=== PATIENT | female | born 1940 | race Caucasian/White ===

== ENCOUNTER 2017-05-05 08:48 | Observation (INO) ==
--- NOTE | 2017-05-04 16:27 | Discharge Summary ---
<Carla Silver - Last Filed: 05/04/17 16:25> Date of Encounter: 05/04/17 - Discharge Diagnosis (1) Osteoarthritis of right knee Priority: Primary Status: Chronic Qualifiers: Osteoarthritis type: unspecified Qualified Code(s): M17.11 - Unilateral primary osteoarthritis, right knee (2) HTN (hypertension) Priority: Secondary Status: Chronic Qualifiers: Hypertension type: unspecified Qualified Code(s): I10 - Essential (primary ) hypertension (3) HLD (hyperlipidemia) Priority: Secondary Status: Chronic Qualifiers: Hyperlipidemia type: unspecified Qualified Code(s): E78.5 - Hyperlipidemia , unspecified (4) History of melanoma Priority: Secondary Status: Chronic - Discharge Medications Home Medications: Calcium Carbonate/Vitamin D3 [Liquid Calcium 600-Vit D3 Sfgl] 1 each PO DAILY [History] Simvastatin [Zocor] 40 mg PO HS 04/01/15 [History] Valsartan/Hydrochlorothiazide [Diovan Hct 160-25 mg Tablet] 1 tab PO DAILY 04/01 [History] Vitamin D3/Folic Acid [Ortho D 3,775 Unit-1 mg Cap] 1 each PO DAILY 04/01/15 [ History] Aspirin Enteric Coated [Aspirin EC] 325 mg PO DAILY 21 Days #21 tablet. [Rx] OxyCODONE Immed Rel [Roxicodone 5 MG] 5 mg PO Q6HR PRN 7 Days #28 tablet [Rx] Magnesium Oxide [Magnesium] 400 mg PO DAILY 05/05/17 [History] Allergies/Adverse Reactions: 3 Allergy/AdvReac Type Severity Reaction Status Date / Time celecoxib [From Celebrex] AdvReac Gastrointestinal Verified 05/05/17 09:58 Upset sulfamethoxazole AdvReac Rash Verified 05/05/17 09:58 [From Bactrim] trimethoprim [From Bactrim] AdvReac Rash Verified 05/05/17 09:58 Primary care physician: Eduard Oneill CNP - Patient Status Disposition: Home Health Service Condition: Good - Discharge Instructions Follow Up With: Eduard Oneill CNP [Primary Care Provider] - - Hospital Course Hospital course: Ms. Silverio is a 76 year old female - Time Spent with Patient Total time spent providing and/or coordinating discharge services: <Donta Rich - Last Filed: 05/06/17 07:06> Date of Encounter: 05/06/17 Time of Encounter: 07:06 - Discharge Diagnosis (1) Obesity (BMI 30.0-34.9) Priority: Secondary Status: Chronic (2) Osteoarthritis of right knee Priority: Primary Status: Chronic Qualifiers: Osteoarthritis type: unspecified Qualified Code(s): M17.11 - Unilateral primary osteoarthritis, right knee (3) HTN (hypertension) Priority: Secondary Status: Chronic Qualifiers: Hypertension type: unspecified Qualified Code(s): I10 - Essential (primary ) hypertension (4) HLD (hyperlipidemia) Priority: Secondary Status: Chronic Qualifiers: Hyperlipidemia type: unspecified Qualified Code(s): E78.5 - Hyperlipidemia , unspecified (5) History of melanoma Priority: Secondary Status: Chronic (6) Status post total right knee replacement Priority: Primary Status: Acute Primary care physician: Eduard Oneill CNP - Patient Status Functional capacity at discharge: uses cane/walker Overall status at discharge: patient is progressing back to baseline - Hospital Course Hospital course: Ms. Silverio is a 76 year old female Status post total knee replacement The patient had an uneventful postoperative course. They received antibiotics and physical therapy and were discharged in stable condition. There will follow -up in the office in 2 weeks. - Time Spent with Patient Total time spent providing and/or coordinating discharge services:
--- NOTE | 2017-05-04 16:31 | Physician Discharge Referral ---
Home Health/Hosp Referral Info Transfer to: Home Health Attending Provider: Dr Donta Rich - Diagnosis (1) Osteoarthritis of right knee Priority: Primary Status: Chronic (2) HTN (hypertension) Priority: Secondary Status: Chronic (3) HLD (hyperlipidemia) Priority: Secondary Status: Chronic (4) History of melanoma Priority: Secondary Status: Chronic (5) Status post total right knee replacement Priority: Primary Status: Acute - Respiratory Orders Smoking Cessation: Smoking cessation has been advised. For more information, call the [place] Tobacco Quit Line at 6-272-VMVU-NOW. - Dressing/Wound Care Site: right knee Type of Dressing/Treatments w/Frequency: Opsite placed. Keep dressing intact until first follow up appointment. If > 50% saturated, notify office, remove dressing and place appropriate dressing back in place. Leave Zipline intact. Opsite dressing is water resistant, not water- proof. OK to shower, but do not get dressing wet. - Diet/Nutrition Diet/Nutrition Orders: Regular - Activity Activity Orders: Up ad adriel, Ambulate, Chair, Walker Activity: List: Total Knee replacement Precautions x 6 weeks Apply cold therapy wrap 3-6x/day for 20 minutes at a time. Encourage ambulation throughout the day and incentive spirometer 10x/hour. Elevate affected extremity above heart as tolerated. Brace: Wear knee immobilizer at night x 2 weeks. - Services Needed Following services are medically necessary services: Nursing, Home Health Aide, Physical Therapy, Occupational Therapy - Transfer Medications Prescriptions: OxyCODONE Immed Rel [Roxicodone 5 MG] 5 mg PO Q6HR PRN 7 Days #28 tablet PRN Reason: Pain Aspirin Enteric Coated [Aspirin EC] 325 mg PO DAILY 21 Days #21 tablet. Home Medications: Aspirin [Adult Low Dose Aspirin EC] 81 mg PO DAILY 04/01/15 [History] Butalb/Acetaminophen/Caffeine [Fioricet 50-300-40 mg Capsule] 1 each PO Q6HR PRN #10 capsule 04/01/15 [Rx] Calcium Carbonate/Vitamin D3 [Liquid Calcium 600-Vit D3 Sfgl] 1 each PO DAILY [History] Etodolac 500 mg PO DAILY PRN 04/01/15 [History] Simvastatin [Zocor] 40 mg PO HS 04/01/15 [History] Valsartan/Hydrochlorothiazide [Diovan Hct 160-25 mg Tablet] 1 each PO DAILY 04/04 [History] Vitamin D3/Folic Acid [Ortho D 3,775 Unit-1 mg Cap] 1 each PO DAILY 04/01/15 [ History] Aspirin Enteric Coated [Aspirin EC] 325 mg PO DAILY 21 Days #21 tablet. [Rx] OxyCODONE Immed Rel [Roxicodone 5 MG] 5 mg PO Q6HR PRN 7 Days #28 tablet [Rx] Allergies/Adverse Reactions: 3 Allergy/AdvReac Type Severity Reaction Status Date / Time sulfamethoxazole AdvReac Rash Verified 04/01/15 17:36 [From Bactrim] trimethoprim [From Bactrim] AdvReac Rash Verified 04/01/15 17:36 Certification: Further, I certify that my clinical findings support that this patient is homebound (i.e. absences from home require considerable and taxing effort and are for medical reasons or druze services or infrequently or short duration when for other reasons) because: Homebound Reason: Post-surgery restriction and or conditions limit ability to leave home Attestation: My signature below is to certify that this patient is under my care and that I, or nurse practitioner, or a physician psychiatric technician assistant working with me, has a face-to- face encounter with this patient.
[2017-05-05] MEDS ORDERED: CeFAZolin Syr 2,000MG/20 ML 2,000 MG/20 ML SYRINGE IVPB ONE (09:14)
--- NOTE | 2017-05-05 09:16 | History & Physical Report ---
Date of Encounter: 05/05/17 Time of Encounter: 09:16 24 Hour HP Update - Instructions Instructions: If the History and Physical is less than 30 days old and was completed prior to A.M. admission and or procedure and has NOT been updated on calendar day of procedure please complete this update prior to performing procedure. - Update Patient reports changes in Medical Condition: No Changes in examination, assessment, or condition: No Changes in Medication: No Preop tests/diagnostics Reviewed: Yes Surgery Remains Indicated: Yes Consent for Planned Operative Procedure(s) Verified: Yes - Pre-Operative Checklist Preoperative Checklist Indicated: No Prophylactic Antibiotic Ordered: Yes Is VTE Prophylaxis Indicated?: Yes
[2017-05-05] MEDS: Ringers Solution, Lactated 1,000 ML IVC SCH ×2 (09:30→14:27)
--- NOTE | 2017-05-05 10:02 | Anesthesia Evaluation PreOp ---
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: Other (hearing loss) Other Medical History: Denies Any Significant HX Anesthesia History: No Prior Anesthetic Complications, Past Anesthesia (FREEMAN, hernia, scotty, excise melanoma, tubal, lap wen), Problems (patient reports she has had difficult airway in past) Alcohol Use: none Drug use: none Medications and Allergies Aspirin [Adult Low Dose Aspirin EC] 81 mg PO DAILY 04/01/15 [History] Butalb/Acetaminophen/Caffeine [Fioricet 50-300-40 mg Capsule] 1 each PO Q6HR PRN #10 capsule 04/01/15 [Rx] Calcium Carbonate/Vitamin D3 [Liquid Calcium 600-Vit D3 Sfgl] 1 each PO DAILY [History] Etodolac 500 mg PO DAILY PRN 04/01/15 [History] Simvastatin [Zocor] 40 mg PO HS 04/01/15 [History] Valsartan/Hydrochlorothiazide [Diovan Hct 160-25 mg Tablet] 1 each PO DAILY 04/04 [History] Vitamin D3/Folic Acid [Ortho D 3,775 Unit-1 mg Cap] 1 each PO DAILY 04/01/15 [ History] Aspirin Enteric Coated [Aspirin EC] 325 mg PO DAILY 21 Days #21 tablet. [Rx] OxyCODONE Immed Rel [Roxicodone 5 MG] 5 mg PO Q6HR PRN 7 Days #28 tablet [Rx] 3 Allergy/AdvReac Type Severity Reaction Status Date / Time celecoxib [From Celebrex] AdvReac Gastrointestinal Verified 05/05/17 09:58 Upset sulfamethoxazole AdvReac Rash Verified 05/05/17 09:58 [From Bactrim] trimethoprim [From Bactrim] AdvReac Rash Verified 05/05/17 09:58 - Meds/Allergy Pre-op Review Medications Reviewed: Yes Allergies Reviewed: Yes Beta Blockers on Current Med List: No Anesthesia Results - Labs Laboratory Tests 04/23/17 04/23/17 09:44 09:44 Hgb 13.1 Hct 41.1 Plt Count 285 Sodium 137 Potassium 4.0 BUN 24 H Creatinine 0.85 Anesthesia Exam Selected Entries 05/05/17 09:28 Temperature 98.4 F Pulse Rate 82 Respiratory Rate 18 Blood Pressure 119/61 O2 Sat by Pulse Oximetry 98 Weight: 81kg NPO (# of Hours): 8 - HEENT Pupil (Motor): EOMI Mallampati: III Teeth: Normal, Prosthesis (permanent bridge) Oral Opening: Less than or equal to 3 - SHIPYARD PAINTER LOC: Oriented SHIPYARD PAINTER Motor: Normal RUE, Normal LUE, Normal RLE, Normal LLE, Normal Face SHIPYARD PAINTER Sensory: Normal: RUE, LUE, RLE, LLE, Face - Cardiac Rhythm: Regular Murmur: None - Pulmonary Breath Sounds: bilateral Clear Respiratory Effort: Symmetrical Anesthesia Assess/Plan ASA Score: 2 Modified Maricarmen Scale for Level of Consciousness: Cooperative, oriented, and tranquil Anesthetic Plan: Regional (SAB with block), MAC Monitoring Plan: Standard Monitors Recovery Plan: PACU
[2017-05-05] MEDS ORDERED: Pregabalin 75 MG CAPSULE PO ONE (10:30)
[2017-05-05] MEDS ORDERED: *HR* Propofol 200 MG/20 ML VIAL IVP ONE (10:36)
[2017-05-05] MEDS ORDERED: Lidocaine -MPF 2% 2 ML VIAL ONE (10:36)
[2017-05-05] MEDS ORDERED: *HR* Midazolam HCl 2 MG/2 ML VIAL ONE (10:36)
[2017-05-05] MEDS ORDERED: *HR* FentaNYL (PF) 100 MCG/2 ML VIAL ONE (10:36)
[2017-05-05] MEDS ORDERED: ROPIVACAINE HCL/PF 0.5% 30 ML VIAL ONE (10:59)
[2017-05-05] MEDS ORDERED: Acetaminophen IV 1,000 MG/100 ML INFUS..BTL ONE (10:59)
[2017-05-05] MEDS ORDERED: Ethanol\\Acetic Acid\\Na Ace\\Ben 1,000 ML IRRIG.SOLN IR ONE (11:03)
[2017-05-05] MEDS ORDERED: Povidone-Iodine 22.5 ML, Sodium Chloride IRRigation 500 ML IR ONE (11:10)
[2017-05-05] MEDS ORDERED: *HR* Morphine Sulfate/PF 10 MG/10 ML AMPUL ONE (11:22)
[2017-05-05] MEDS ORDERED: Propofol 500 MG/50 ML INFUS..BTL ONE (11:27)
[2017-05-05] MEDS ORDERED: *HR* Labetalol 20 MG/4 ML SYRINGE IVP PRN (12:09)
[2017-05-05] MEDS ORDERED: Ondansetron 4 MG/2 ML VIAL IVP PRN ×2 (12:09→15:25)
--- NOTE | 2017-05-05 12:09 | Anesthesia Procedures ---
Date of Encounter: 05/05/17 Time of Encounter: 11:47 Procedures: Anesthesia - Nerve Block Procedure Date: 05/05/17 Time: 11:47 Allergies/Adv Reactions: celebrex, bactrim Pre-op Diagnosis: right knee OA Surgical Procedure: right TKA robotic Checklist: Correct Patient Identifier, Correct procedure, History checked Correct side: Right Blood Thinner: No Monitor Applied: EKG, BP, Pulse Oximetry Supplemental Oxygen via Nasal Cannula (L/min): 2 Sedation: Versed (mg): 1 Sedation: Fentanyl (mcg): 100 Indication: Post Op Analgesia Pre-op Neuro Deficits: No Block Type: Other (adductor canal, ipack, WILL) Catheter placed: No Sterile Technique: Yes Ultrasound used: Yes Anatomy identified: Yes Visual spread of Local: Yes Neuro Stimulation: No Blood on Needle Aspiration: No Smooth Injection of Local: Yes Pain with Injection of Local: No Prep: Chlorhexadine Needle: 22 x 50 mm Stimuplex, 21 x 100 mm Stimuplex Local: Ropivacaine (AC: 15mL / WILL 15mL 0.5% + 10mg decadron), Other (0.25% bupivacaine 20mL + 10mg decadron) Volume (cc): 50 Number of Attempts: 1 Complications: None/effective block Vitals: Vital Signs/O2 Sat/Glucose, Most Recent Temp Pulse Resp BP Pulse Ox 98.4 F 79 18 151/69 99 05/05/17 09:28 05/05/17 11:47 05/05/17 11:47 05/05/17 11:47 05/05/17 11:47
[2017-05-05] MEDS ORDERED: Ondansetron 4 MG/2 ML VIAL ONE (13:05)
[2017-05-05] MEDS ORDERED: Dexamethasone 4 MG/ML VIAL ONE ×2 (13:05)
[2017-05-05] MEDS ORDERED: *HR* Phenylephrine 10 MG/ML VIAL ONE (13:07)
[2017-05-05] MEDS ORDERED: *HR* Magnesium Sulfate 1 GM/2 ML VIAL ONE (13:10)
--- NOTE | 2017-05-05 13:26 | Anesthesia Procedures ---
Date of Encounter: 05/05/17 Time of Encounter: 13:00 Procedures: Anesthesia - Epidural/Spinal Patient ID/Chart reviewed: Yes Patient examined: Yes Supplemental Oxygen: Mask Supplemental Oxygen Rate (L/min): 10 Site Prep: Aseptic Technique, Sterile prep and drape, Povidone-Iodine 1% Patient position: upright Local Anesthetic: Lidocaine 1% Amount of Local Anesthetic used: 2 Interspace Used: L3-L4 Blood: No CSF: Yes Paresthesia: No Spinal Needle Gauge: 22 Spinal Dose: 1.8mL 0.75% marcaine w/ epi wash + 200mcg [employer] Procedure: right TKA robotic
--- NOTE | 2017-05-05 13:54 | Orthopedic Operative Note ---
Date of procedure: 05/05/17 Pre-op diagnosis: Right knee arthritis Post-op diagnosis: same Procedure: Procedure: Right robotic-assisted Total knee replacement Estimated blood loss: 200 cc Hardware: Metal and polyethylene replacement. [place] Femur:1 Tibia:2 TS insert: 13 Patella: 33 Exam Under anesthesia: 5 degree flexion contracture and 1 degree valgus as calculated by the robot full flexion and no instability Procedural Notes: Grade 3 arthritic changes medial compartment and patellofemoral joint. Operative procedure: The patient was brought to the operating room and placed on the operating room table. After general anesthesia was administered the operative knee was examined. Findings were noted in the exam under anesthesia. The operative extremity was prepped and draped in sterile surgical fashion. The patient received IV antibiotics prior to skin incision. A standard midline incision was made centered over the patella. The incision was made through the skin and subcutaneous tissue. A medial parapatellar tendon approach was performed. Care was taken to preserve tissue along the medial aspect of the patella. And to protect the patella tendon. The deep MCL was released off the medial tibia. The infra patella fat pad was excised. The patella was everted and cut was made at the level of the insertion of the quadriceps and patella tendon. The patella was sized to a 33 the guide was seated and the lug holes are drilled. Knee was brought into flexion. Patient noted to have Steinmann pins were placed in the tibia and the femur for the tibial and femoral arrays respectively. Checkpoints were also placed in the tibia and the femur for calculation purposes. The knee including the femur and the tibial registered. Osteophytes, ACL and PCL were excised at this point. Extension and flexion were assessed with a valgus stress components were adjusted on the computer to balance the knee. Femoral cuts were made first with robotic assistance, these included the anterior cut posterior cuts chamfer cuts. Tibial cut was then performed with robotic assistance as well. Bone fragments were removed, as well as the medial and lateral meniscus. The size 1 femoral guide was seated box cut was made lug holes are drilled. The size 2 tibial tray was seated and prepared with the fin cutter. Trial reduction with the 13 TS Kellee revealed extension of 0 degree and full flexion 1 degree varus. No varus valgus instability. Trial reduction revealed excellent patella tracking. All trial components were removed all bony surfaces were irrigated. The Tibia was seated followed by the femur, The Kellee size 13 was seated and secured patella. Patient had similar findings for motion and stability. The knee was closed by the PA. The knee was then irrigated out with 2 L of pulse irrigation. The extensor mechanism was closed with #2 FiberWire suture and #2 PDS suture. The subcutaneous tissue was then irrigated and closed deep with #1 PDS suture superficially with 0 PDS suture and skin was closed with zip tie The patient was then placed in a sterile dressing and a postoperative brace and transferred to recovery room in stable condition. Anesthesia: epidural Surgeon: Donta Rich Was there an laboratory chemical assistant present: No Estimated blood loss (cc): 200 Condition: stable Disposition: PACU
--- NOTE | 2017-05-05 14:59 | Anesthesia Evaluation Post Op ---
Date of Encounter: 05/05/17 Time of Encounter: 14:58 - Vital Signs Vital Signs: Vital Signs/O2 Sat, Most Current Temp Pulse Resp BP Pulse Ox 99.6 F 80 18 110/53 97 05/05/17 14:34 05/05/17 14:54 05/05/17 14:54 05/05/17 14:54 05/05/17 14:54 - Lungs Lungs: Clear Ascult./Percussion - Airway Airway: Non-obstructed - Cardiovascular Regular Rate - Mental Status Mental Status: Alert & Oriented, Answers Appropriately - Pain Pain Scale: 0 Pain Scale used: Numeric (1 - 10) - Hydration Hydration: NPO, Has not voided - Discharge PostOp Status: Transfer Patient to floor
[2017-05-05 15:12] LABS: Hematocrit 37.8 % (35.3-44.9); Hemoglobin 12.2 g/dL (11.5-15.4)
[2017-05-05] MEDS ORDERED: *HR* OxyCODONE Immed Rel 5 MG TABLET PO PRN (15:25)
[2017-05-05] MEDS ORDERED: *HR* OxyCODONE Immed Rel 15 MG TABLET PO PRN (15:25)
[2017-05-05] MEDS ORDERED: Ringers Solution, Lactated 1,000 ML IVC SCH (15:25)
[2017-05-05] MEDS ORDERED: Naloxone 0.4 MG/ML INJ IVP PRN (15:25)
[2017-05-05] MEDS: CeFAZolin Premix DUPLEX 2,000 MG/50 ML BAG IVPB SCH (17:35)
[2017-05-05] MEDS: *HR* Enoxaparin 30 MG/0.3 ML SYRINGE SQ SCH (17:36)
[2017-05-05] MEDS ORDERED: *HR* Enoxaparin 30 MG/0.3 ML SYRINGE SQ SCH (18:00)
[2017-05-05] MEDS ORDERED: Temazepam 15 MG CAPSULE PO PRN (21:00)
[2017-05-05] MEDS ORDERED: MOM Conc 10 ML UD.LIQ PO PRN (21:00)
[2017-05-05] MEDS ORDERED: Sennosides 8.6 MG TABLET PO PRN (21:00)
[2017-05-06] MEDS: CeFAZolin Premix DUPLEX 2,000 MG/50 ML BAG IVPB SCH (00:13)
[2017-05-06] MEDS: *HR* Enoxaparin 30 MG/0.3 ML SYRINGE SQ SCH ×2 (05:32→17:23)
[2017-05-06 06:30] LABS: Hematocrit 34.6 % (35.3-44.9); Hemoglobin 11.1 g/dL (11.5-15.4)
[2017-05-06 06:32] LABS: BUN/Creatinine Ratio 31 (6-26); Blood Urea Nitrogen 19 mg/dL (8-23); Calcium 8.3 mg/dL (8.6-10.3); Carbon Dioxide 26 mEq/L (23-29); Chloride 104 mEq/L (98-107); Glucose 139 mg/dL (70-105); Osmolality,Calculated 287 (280-300); Potassium 4.1 mEq/L (3.5-5.1); Sodium 136 mEq/L (136-145); eGFR For African Americans > 60 (> 60); eGFR For Non-African Americans > 60 (> 60)
--- NOTE | 2017-05-06 07:07 | Orthopedics Progress Note ---
Date of Encounter: 05/06/17 Time of Encounter: 07:07 - Assessment and Plan (1) Obesity (BMI 30.0-34.9) Current Visit: Yes Status: Chronic (2) Osteoarthritis of right knee Current Visit: No Status: Chronic Qualifiers: Osteoarthritis type: unspecified Qualified Code(s): M17.11 - Unilateral primary osteoarthritis, right knee (3) HTN (hypertension) Current Visit: No Status: Chronic Qualifiers: Hypertension type: unspecified Qualified Code(s): I10 - Essential (primary ) hypertension (4) HLD (hyperlipidemia) Current Visit: No Status: Chronic Qualifiers: Hyperlipidemia type: unspecified Qualified Code(s): E78.5 - Hyperlipidemia , unspecified (5) History of melanoma Current Visit: No Status: Chronic (6) Status post total right knee replacement Current Visit: No Status: Acute Subjective Interval history: Patient was seen this morning doing well without complaints. Afebrile vital signs stable. Operative extremity: Neurovascularly intact Dressing clean dry and intact Calves nontender Assessment and plan: Continue with postoperative care Hematocrit 34 discharged today Objective Vital signs: Vital Signs Temp Pulse Resp BP Pulse Ox 05/06/17 03:57 98.1 F 76 20 106/61 97 05/06/17 00:48 98.2 F 81 20 114/64 98 05/05/17 18:35 97.6 F 74 106/58 99 05/05/17 17:44 97.7 F 74 16 102/60 99 05/05/17 16:32 97.6 F 71 14 95/55 98 05/05/17 15:59 97.5 F L 69 16 98/53 97 05/05/17 15:29 97.6 F 72 14 99/57 98 05/05/17 15:14 97.5 F L 75 18 103/51 97 05/05/17 15:04 97.5 F L 75 18 102/55 96 05/05/17 14:54 80 18 110/53 97 05/05/17 14:44 77 18 102/52 93 05/05/17 14:34 99.6 F 81 18 100/46 94 05/05/17 12:15 73 18 133/68 99 05/05/17 12:00 76 18 127/77 99 05/05/17 11:47 79 18 151/69 99 01/15/18 09:28 98.4 F 82 18 119/61 98 Intake and Output 05/05/17 05/05/17 05/06/17 15:59 23:59 07:59 Intake Total 1000 / 1000 50 / 50 0 / 0 Output Total 200 / 200 0 / 0 Balance 800 / 800 50 / 50 0 / 0 Intake: IV Fluids 1000 / 1000 50 / 50 Lactated Ringers 1,000 ML @ 25 1000 / 1000 mls/hr IVC .Q24H [facility] Rx#: [id number] Ancef Premix DUPLEX 2,000 mg In 50 / 50 50 ml @ 100 mls/hr IVPB Q8HR [facility] Rx#:[id number] Oral 0 / 0 Output: Urine 0 / 0 Estimated Blood Loss 200 / 200 Other: # Voids 1 Weight 81.193 kg 87.24 kg Patient Weight 05/06/17 23:59 Weight 87.24 kg - Labs CBC & BMP: 05/06/17 05:51 05/06/17 05:51 Labs: Abnormal lab results Hgb 11.1 g/dL (11.5-15.4) L 05/06/17 05:51 Hct 34.6 % (35.3-44.9) L 05/06/17 05:51 BUN/Creatinine Ratio 31 (6-26) H 05/06/17 05:51 Glucose 139 mg/dL (70-105) H 05/06/17 05:51 Calcium 8.3 mg/dL (8.6-10.3) L 05/06/17 05:51 - VTE Documentation of Mechanical Device: Venous foot pump, device Consult Discharge Plan - Plan Referrals: Eduard Oneill [facility] [Primary Care Provider] -
[2017-05-06] MEDS: Valsartan 160 MG TABLET PO SCH (07:57)
[2017-05-06] MEDS: Folic Acid 1 MG TABLET PO SCH (08:04)
[2017-05-06] MEDS: Cholecalciferol (D-3) 1,000 UNIT TABLET PO SCH (08:04)
[2017-05-06] MEDS: Magnesium Oxide 400 MG TABLET PO SCH (08:04)
[2017-05-06] MEDS ORDERED: hydroCHLOROthiazide 25 MG TABLET PO SCH (09:00)
[2017-05-06] MEDS: *HR* OxyCODONE Immed Rel 5 MG TABLET PO PRN ×2 (10:06→15:56)
[2017-05-06] MEDS ORDERED: *HR* HYDROcodone/Acet 5/325 mg TABLET PO PRN (17:01)
--- NOTE | 2017-05-06 17:06 | Event Note ---
Date of Encounter: 05/06/17 Time of Encounter: 12:00 PCR- POD#1 R TKR doris Rich 05/05/17 PCR - Patient seen at bedside. Pain control: Adequate Participating in PT. All questions and concerns addressed. Educated on use of incentive spirometer, ambulation, and hydration. Patient educated on post-operative restrictions and care. Addressed: patient having vasovagal episodes with sitting to standing. Appears to be orthostatic in nature. Encouraged PO hydration, increased nutritional intake, and rest. Patient admits to h/o these episodes in the past appx 4 years ago following abdominal surgery with Dr. Betancur. D/C plan: D/C tomorrow if vagal epsiodes resolve.
[2017-05-06] MEDS: *HR* HYDROcodone/Acet 10/325 mg TABLET PO PRN (20:47)
[2017-05-07] MEDS: *HR* HYDROcodone/Acet 10/325 mg TABLET PO PRN ×3 (02:04→14:22)
[2017-05-07 05:38] LABS: Hematocrit 27.6 % (35.3-44.9)
[2017-05-07 05:46] LABS: BUN/Creatinine Ratio 38 (6-26); Blood Urea Nitrogen 23 mg/dL (8-23); Calcium 7.8 mg/dL (8.6-10.3); Carbon Dioxide 26 mEq/L (23-29); Chloride 103 mEq/L (98-107); Glucose 143 mg/dL (70-105); Osmolality,Calculated 282 (280-300); Potassium 4.1 mEq/L (3.5-5.1); Sodium 133 mEq/L (136-145); eGFR For African Americans > 60 (> 60); eGFR For Non-African Americans > 60 (> 60)
[2017-05-07 05:49] LABS: Hemoglobin 9.1 g/dL (11.5-15.4)
[2017-05-07] MEDS: *HR* Enoxaparin 30 MG/0.3 ML SYRINGE SQ SCH (06:00)
[2017-05-07] MEDS ORDERED: Furosemide 20 MG/2 ML VIAL IVP ONE (06:37)
[2017-05-07] MEDS: Cholecalciferol (D-3) 1,000 UNIT TABLET PO SCH (08:32)
[2017-05-07] MEDS: Valsartan 160 MG TABLET PO SCH (08:32)
[2017-05-07] MEDS: Magnesium Oxide 400 MG TABLET PO SCH (08:32)
[2017-05-07] MEDS: Folic Acid 1 MG TABLET PO SCH (08:33)
--- NOTE | 2017-05-07 08:42 | Orthopedics Progress Note ---
Date of Encounter: 05/07/17 Time of Encounter: 08:41 - Assessment and Plan (1) Obesity (BMI 30.0-34.9) Current Visit: Yes Status: Chronic (2) Osteoarthritis of right knee Current Visit: No Status: Chronic Qualifiers: Osteoarthritis type: unspecified Qualified Code(s): M17.11 - Unilateral primary osteoarthritis, right knee (3) HTN (hypertension) Current Visit: No Status: Chronic Qualifiers: Hypertension type: unspecified Qualified Code(s): I10 - Essential (primary ) hypertension (4) HLD (hyperlipidemia) Current Visit: No Status: Chronic Qualifiers: Hyperlipidemia type: unspecified Qualified Code(s): E78.5 - Hyperlipidemia , unspecified (5) History of melanoma Current Visit: No Status: Chronic (6) Status post total right knee replacement Current Visit: No Status: Acute Subjective Interval history: Patient was seen this morning doing well without complaints. Afebrile vital signs stable. Operative extremity: Neurovascularly intact Dressing clean dry and intact Calves nontender Assessment and plan: Continue with postoperative care Hematocrit 27 transfuse 1 unit PRBC discharged today Objective Vital signs: Vital Signs Temp Pulse Resp BP Pulse Ox 05/07/17 07:37 98.6 F 97 16 120/57 97 05/07/17 05:29 98.2 F 74 15 119/76 97 05/07/17 00:07 98.9 F 89 16 120/57 97 05/06/17 20:54 89 116/55 05/06/17 16:43 99.6 F 101 16 91/45 94 05/06/17 15:58 91 118/65 05/06/17 15:25 98.9 F 89 16 120/57 97 05/06/17 15:05 98.4 F 86 14 109/54 96 05/06/17 14:00 99.2 F 92 16 118/57 92 05/06/17 12:56 81 105/61 05/06/17 12:48 66/40 05/06/17 10:47 98.3 F 87 15 109/57 97 05/06/17 10:03 83 121/66 Intake and Output 05/06/17 05/07/17 05/07/17 23:59 07:59 15:59 Intake Total 120 / 120 Output Total 200 / 200 Balance 120 / 120 -200 / -200 Intake: Oral 120 / 120 Output: Urine 200 / 200 Other: Meal Dinner Percent of Meal Consumed 5% # Voids 1 - Labs CBC & BMP: 05/07/17 05:23 05/07/17 05:23 Labs: Abnormal lab results Hgb 9.1 g/dL (11.5-15.4) L D 05/07/17 05:23 Hct 27.6 % (35.3-44.9) L 05/07/17 05:23 Sodium 133 mEq/L (136-145) L 05/07/17 05:23 BUN/Creatinine Ratio 38 (6-26) H 05/07/17 05:23 Glucose 143 mg/dL (70-105) H 05/07/17 05:23 Calcium 7.8 mg/dL (8.6-10.3) L 05/07/17 05:23 - VTE Documentation of Mechanical Device: Venous foot pump, device Consult Discharge Plan - Plan Additional Instructions: Discharge Instructions: Total Knee Replacement Please call [facility] ([phone]), your Primary Care Physician, or report to the Emergency Room if you have any of the following symptoms: Nausea, vomiting, fever greater that 101.5, swelling, chest pain, shortness of breath, increased pain/redness/drainage/odor for your incision site, numbness/ tingling, or any other concerning symptoms. ACTIVITY:Weight-bearing as tolerated. You may progress off support (crutches or walker) as tolerated. MEDICATIONS: Upon discharge resume your home medications. Take all the medications as prescribed. Take a stool softener if taking narcotic pain medications. Stool softeners are only effective if you drink enough fluids. Drink 6-8 glass of water or fluids a day, unless this is not allowed for another health problem. Despite using stool softeners, if you haven't had a bowel movement in 3 days, please switch to a gentle laxative. Gentle laxatives are sold over the counter. You should have a bowel movement within 24 hours, if not call the office. You will be discharged from the hospital with a prescription for pain medication. You are encouraged to decrease the use of narcotic pain medication as tolerated. Should you require a refill, please call the office. [facility] prescribes narcotic pain medication for only 4-6 weeks after surgery. If you require pain medication beyond this time period, you may be referred to your Primary Care Physician or to the Pain Clinic for further evaluation. Plan ahead for refills on pain medication as many narcotics either need to be picked up at the office or mailed. It is best to call 48-72 hours in advance of needing a prescription refill so you don't run out of medication. To help control the post-operative pain, you may take NSAIDs (Aleve,Advil, Motrin, Ibuprofen, Naprosyn) or Tylenol as prescribed on the bottle in addition to the pain medication. ANTICOAGULATION (blood thinners): Continue your Aspirin, Lovenox or Coumadin as prescribed to help prevent a blood clot in the leg or in the lungs. As long as your incision remains dry and you tolerate the NSAIDs (Aleve, Advil, Motrin, ibuprofen, naprosyn), it is OK to use the NSAIDS while you are taking your anticoagulation medication. Should your incision start to drain, stop the NSAID and contact our office. Common symptoms of blood clot in the legs include: localized pain, swelling, calf tenderness, redness or discoloration of the skin. Blood clot in the lung symptoms include: shortness of breath, rapid pulse, sweating, and chest pain that worsens with deep breathing, coughing up blood, lightheadedness, feelings of anxiety. If you experience any of these symptoms notify your physician immediately, go to the emergency room, or if having trouble breathing, call 911. WOUND CARE: Leave the dressing on for 7 to 10days. You may change the dressing if it becomes saturated greater than 50%. Do not get the dressing wet at anytime. Wash your hands with antibacterial soap, rinse and dry prior to any wound care. If you have jaclyn the visiting nurse or rehab facility can remove the stapes 10-14 days after surgery and place steri-strips across the wound. Leave the steri-strips in place until they fall off on their won. You may let water from the shower run on top of the steri-strips. If you do not have a visiting nurse or rehab facility, you will need to return to the office at 10-14 days for the jaclyn to be removed. If you have itching or redness around the dressing call the office. FOLLOW-UP: Please follow up with your surgeon in the orthopedic clinic in 4 weeks from the day of surgery. If you have jaclyn that need to be removed, you will need to come back to the office in 10-14 days from the day of surgery. Referrals: Carla Silver PAC [Physician Sales Consultant] - 05/15/17 9:45 am Donta Rich MD [Partnered Physician] - 06/04/17 4:20 pm Eduard Oneill CNP [Primary Care Provider] - 07/02/17 8:30 am
[2017-05-07] MEDS ORDERED: 0.9 % Sodium Chloride 250 ML ONE (10:45)
[2017-05-07 15:47] VITALS: BP 131/63
--- NOTE | 2017-05-07 16:20 | Event Note ---
Date of Encounter: 05/07/17 Time of Encounter: 12:15 PCR- POD#2 R TKR doris Rich 05/05/17 PCR - Patient seen at bedside. Pain control: Adequate, switching rx to norco upon discharge at pt request as percocet caused vasovagal episodes Labs: H/H - 9.05/17.6 - receiving 1unit RBC today Participating in PT. All questions and concerns addressed. Educated on use of incentive spirometer, ambulation, and hydration. Patient educated on post-operative restrictions and care. Addressed: (05/06/17) patient having vasovagal episodes with sitting to standing. Appears to be orthostatic in nature. Encouraged PO hydration, increased nutritional intake, and rest. Patient admits to h/o these episodes in the past appx 4 years ago following abdominal surgery with Dr. Betancur. 05/07/17 - No further vasovagal episodes today, states she is feeling much better. D/C plan: D/C today after transfusion
--- NOTE | 2017-05-08 07:53 | Electrocardiograph Report ---
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
== END 2017-05-07 16:28 | disposition home health service (06) ==
LOC: SAMDAY 08:48 → 3NENU 15:26 → INTOOBSV 15:26
PROVIDERS: ADMIT Orthopaedic Surgery; ATTEND Orthopaedic Surgery

== ENCOUNTER 2020-11-08 12:08 | Observation (INO) ==
[2020-11-08] MEDS ORDERED: Naloxone 0.4 MG/ML INJ IVP PRN (14:26)
[2020-11-08] MEDS ORDERED: Melatonin 3 MG TABLET PO PRN (14:26)
[2020-11-08] MEDS ORDERED: Ondansetron ODT 4 MG TAB.RAPDIS SL PRN (14:26)
[2020-11-08] MEDS ORDERED: Mag Hydrox/Al Hydrox/Simeth 30 ML UDC PO PRN (14:26)
[2020-11-08] MEDS ORDERED: MOM Conc 10 ML UD.LIQ PO PRN (14:26)
[2020-11-08] MEDS ORDERED: Isovue-370 500 ML BOTTLE IVP ONE (14:28)
[2020-11-08] MEDS: Fluticasone Propionate Nasal 50 MCG/SPRAY BOTTLE NS SCH (17:15)
[2020-11-08] MEDS ORDERED: *HR* LORazepam 2 MG/ML VIAL IVP ONE (19:26)
[2020-11-09 04:44] LABS: Hematocrit 39.4 % (35.3-44.9); Mean Corpuscular Hemoglobin 28.2 pg (28.0-33.3); Mean Platelet Volume 10.1 fL (9.4-12.4); Platelet Count 279 K/mcL (140-400); Red Blood Count 4.61 M/mcL (3.82-4.97); Red Cell Distribution Width 13.6 % (11.5-14.5)
[2020-11-09 04:48] LABS: Mean Corpuscular Volume 85.5 fL (83.0-100.0)
[2020-11-09 04:56] LABS: Alanine Aminotransferase 30 Units/L (7-52); Albumin 3.5 g/dL (3.5-5.7); Albumin/Globulin Ratio 1.7 (1.1-2.2); Alkaline Phosphatase 57 Units/L (34-104); Aspartate Amino Transferase 22 Units/L (13-39); BUN/Creatinine Ratio 29 (6-26); Bilirubin,Total 0.8 mg/dL (0.3-1.0); Blood Urea Nitrogen 18 mg/dL (8-23); Calcium 8.1 mg/dL (8.6-10.3); Carbon Dioxide 25 mEq/L (23-29); Chloride 105 mEq/L (98-107); Chol/HDL Ratio 2.3 (0-4.9); Cholesterol 149 mg/dL (< 200); Globulin 2.1 g/dL (2.4-3.5); Glucose 98 mg/dL (70-105); HDL Cholesterol 66 mg/dL (40-59); LDL Cholesterol,Calculated 63 mg/dL (< 100); Osmolality,Calculated 286 (280-300); Potassium 3.5 mEq/L (3.5-5.1); Sodium 137 mEq/L (136-145); Total Protein 5.6 g/dL (6.4-8.9); Triglycerides 102 mg/dL (< 150); eGFR For African Americans > 60 (> 60); eGFR For Non-African Americans > 60 (> 60)
[2020-11-09] MEDS ORDERED: *HR* Enoxaparin 40 MG/0.4 ML SYRINGE SQ SCH (06:00)
[2020-11-09] MEDS: Fluticasone Propionate Nasal 50 MCG/SPRAY BOTTLE NS SCH (07:52)
[2020-11-09] MEDS: Aspirin Enteric Coated 81 MG Tablet PO SCH (07:56)
[2020-11-09] MEDS ORDERED: Aspirin 81 MG TAB.CHEW PO SCH (09:00)
[2020-11-09] MEDS ORDERED: Perflutren Lipid Microsphere 1.3 ML in 0.9 % Sodium Chloride 8.7 ML IVP PRN (09:16)
[2020-11-09] MEDS ORDERED: *HR* LORazepam 2 MG/ML VIAL IVP ONE (09:25)
[2020-11-09] MEDS ORDERED: Heparin 25,000UNIT/250ML 1/2NS 25,000 UNIT/250 ML IV.SOLN IVC SCH (09:30)
[2020-11-09 09:58] LABS: Hematocrit 40.7 % (35.3-44.9); Hemoglobin 13.3 g/dL (11.5-15.4); Mean Corpuscular HGB Conc 32.7 g/dL (31.6-35.5); Mean Corpuscular Hemoglobin 28.1 pg (28.0-33.3); Mean Corpuscular Volume 85.9 fL (83.0-100.0); Mean Platelet Volume 10.1 fL (9.4-12.4); Platelet Count 288 K/mcL (140-400); Red Blood Count 4.74 M/mcL (3.82-4.97); Red Cell Distribution Width 13.6 % (11.5-14.5); White Blood Count 10.6 K/mcL (4.3-11.1)
[2020-11-09 10:11] LABS: Heparin anti-factor XA UFH 0.48 IU/mL (0.30-0.70); INR 1.1; Prothrombin Time 12.7 Seconds (9.4-12.1)
[2020-11-09 10:33] LABS: Bacteria,Urine Few per hpf (None-Few); Bilirubin,Urine Negative (Negative); Blood,Urine Negative (Negative); Clarity,Urine Clear (Clear); Color,Urine Yellow (Yellow); Glucose,Urine (UA) Normal (Normal); Ketones,Urine 10 mg/dL (Negative); Leukocyte Esterase,Urine Trace (Negative); Mucus,Urine Few per lpf (None-Few); Nitrite,Urine Negative (Negative); PH,Urine 6.5 pH Units (5.0-8.0); Protein,Urine Trace mg/dL (Neg-Trace); Specific Gravity,Urine > 1.030 (1.010-1.025); Squamous Epithelial Cell,Urine Few per hpf (None-Few); Urobilinogen,Urine Normal (Normal); WBC,Urine 0-3 per hpf (0-3)
[2020-11-09] MEDS: predniSONE 10 MG TABLET PO SCH (11:57)
[2020-11-09] MEDS ORDERED: Saline Nasal Spray 44 ML BOTTLE NS PRN (11:58)
[2020-11-09] MEDS: amLODIPine 5 MG TABLET PO SCH (12:10)
[2020-11-09] MEDS: Loratadine 10 MG TABLET PO SCH (20:49)
[2020-11-10] MEDS: Loratadine 10 MG TABLET PO SCH (08:00)
[2020-11-10] MEDS: amLODIPine 5 MG TABLET PO SCH (08:00)
[2020-11-10] MEDS: predniSONE 10 MG TABLET PO SCH (08:00)
[2020-11-10] MEDS: Aspirin Enteric Coated 81 MG Tablet PO SCH (08:00)
[2020-11-10] MEDS: Fluticasone Propionate Nasal 50 MCG/SPRAY BOTTLE NS SCH (08:01)
[2020-11-10 11:37] VITALS: BP 132/68; PULSE 82; TEMP 98.5; O2SAT 97
== END 2020-11-10 14:47 | disposition home or self-care (01) ==
LOC: 3BNU → SUATTDRO 13:49 → 2NNU 11-09 12:33
PROVIDERS: ADMIT Internal Medicine; ATTEND Internal Medicine